=== PATIENT | female | born 1955 | race Caucasian/White ===

== ENCOUNTER 2019-01-25 23:47 | Inpatient (IN) | payer BC ==
[2019-01-26] MEDS ORDERED: GLUCOSE GEL 15 GRAM TUBE BUCCAL (02:30)
[2019-01-26] MEDS ORDERED: GLUCAGON 1 MG INJ IM (02:30)
[2019-01-26] MEDS ORDERED: PROMETHAZINE/DM (CUP) PO (02:30)
[2019-01-26] MEDS ORDERED: DEXTROSE 50% 50 ML SYRINGE IV ×2 (02:30)
[2019-01-26] MEDS ORDERED: SPECIAL NON-STANDARD MEDICATION BOTH EYES (02:30)
[2019-01-26] MEDS ORDERED: MELOXICAM 7.5 MG TAB PO (02:30)
[2019-01-26] MEDS ORDERED: ONDANSETRON 4 MG INJ IV (02:30)
[2019-01-26] MEDS ORDERED: GLUCOSE GEL 15 GRAM TUBE PO ×2 (02:30)
[2019-01-26] MEDS: SOD CHLORIDE 0.9% 1,000 ML IV ×3 (02:50→22:30)
[2019-01-26] MEDS ORDERED: [UNRECOGNIZED DRUG - OTHER] XX (03:30)
[2019-01-26] MEDS ORDERED: PIMECROLIMUS XX (03:30)
[2019-01-26 06:22] LABS: ADD MAN DIFF? NO
[2019-01-26 06:34] LABS: BASOPHIL # 0.1 10^3/ul (0.0-0.1); BASOPHILS % 1.5 % (0.0-2.0); EOSINOPHILS # 0.3 10^3/ul (0.0-0.5); EOSINOPHILS % 5.2 % (0.0-7.0); HEMATOCRIT 38.1 % (37.0-47.0); HEMOGLOBIN 13.1 g/dl (12.0-16.0); LYMPHOCYTES # 2.5 10^3/ul (0.8-2.9); LYMPHOCYTES % 39.7 % (15.0-51.0); MEAN CORPUSCULAR HEMOGLOBIN 30.3 pg (29.0-33.0); MEAN CORPUSCULAR HGB CONC 34.4 g/dl (32.0-37.0); MEAN CORPUSCULAR VOLUME 88.2 fl (82.0-101.0); MONOCYTE # 0.5 10^3/ul (0.3-0.9); MONOCYTES % 7.8 % (0.0-11.0); NEUTROPHIL # 2.8 10^3/ul (1.6-7.5); NEUTROPHILS % 45.5 % (39.0-77.0); PLATELET COUNT 263 10^3/UL (140-415); RED BLOOD COUNT 4.32 10^6/ul (4.20-5.40); RED CELL DISTRIBUTION WIDTH 12.6 % (11.5-14.5)
[2019-01-26 06:34] LABS: WHITE BLOOD COUNT 6.2 10^3/ul (4.8-10.8)
[2019-01-26] MEDS: LORATADINE 10 MG TAB PO (06:53)
[2019-01-26] MEDS: AMLODIPINE 2.5 MG TAB PO (06:54)
[2019-01-26] MEDS: LOSARTAN 50 MG TAB PO (06:54)
[2019-01-26 06:58] LABS: ADD UMIC NO; UR ASCORBIC ACID NEGATIVE (NEGATIVE); UR BILIRUBIN (Dip) NEGATIVE (NEGATIVE); UR BLOOD (Dip) NEGATIVE (NEGATIVE); UR CLARITY CLEAR (CLEAR); UR COLOR YELLOW (YELLOW); UR GLUCOSE (Dip) NEGATIVE (NEGATIVE); UR KETONES (Dip) NEGATIVE (NEGATIVE); UR LEUKOCYTE ESTERASE (Dip) NEGATIVE Leu/ul (NEGATIVE); UR NITRITE (Dip) NEGATIVE (NEGATIVE); UR SPECIFIC GRAVITY (Dip) 1.012 (1.003-1.030); UR TOTAL PROTEIN (Dip) NEGATIVE (NEGATIVE); UR UROBILINOGEN (Dip) NEGATIVE (NEGATIVE)
[2019-01-26 07:10] LABS: ANION GAP 9 (5-13); BLOOD UREA NITROGEN 11 mg/dl (7-20); CALCIUM 8.7 mg/dl (8.4-10.2); CARBON DIOXIDE 25 mmol/L (21-31); CHLORIDE 109 mmol/L (97-110); CREATININE 0.51 mg/dl (0.44-1.00); Estimated GFR > 60 mL/min (>60); GLUCOSE 118 mg/dl (70-220); POTASSIUM 4.1 mmol/L (3.5-5.1); SODIUM 143 mmol/L (135-144)
[2019-01-26] MEDS: INSULIN ASPART [NOVOLOG] 3 ML PEN SC ×3 (07:55→17:27)
[2019-01-26] MEDS: ACCU-CHEK XX ×4 (08:18→21:24)
[2019-01-26] MEDS: ASPIRIN (EC) 81 MG TAB PO (08:19)
[2019-01-26] MEDS: CEFEPIME 1GM/50 ML (PMX) 50 ML IVPB ×2 (08:19→20:37)
[2019-01-26] MEDS: ALPRAZOLAM 0.25 MG TAB PO ×2 (08:21→20:35)
[2019-01-26] MEDS: SPECIAL NON-STANDARD MEDICATION (BULK) TOP ×2 (09:00→20:47)
[2019-01-26] MEDS ORDERED: PIMECROLIMUS TOP (09:00)
[2019-01-26] MEDS ORDERED: LOSARTAN 50 MG TAB PO (09:00)
[2019-01-26] MEDS: ACETAMINOPHEN 325 MG TAB PO ×2 (10:36→20:35)
[2019-01-26] MEDS ORDERED: SUMATRIPTAN 25 MG TAB PO (12:30)
[2019-01-26] MEDS: metFORMIN 500 MG TAB PO (17:31)
[2019-01-26] MEDS: MELATONIN 3 MG TABLET PO (20:36)
[2019-01-26] MEDS: ATORVASTATIN 40 MG TAB PO (20:39)
[2019-01-27] MEDS: SOD CHLORIDE 0.9% 1,000 ML IV ×2 (03:17→08:12)
[2019-01-27 05:33] LABS: ADD MAN DIFF? NO
[2019-01-27 05:37] LABS: WHITE BLOOD COUNT 6.4 10^3/ul (4.8-10.8)
[2019-01-27 05:37] LABS: BASOPHIL # 0.1 10^3/ul (0.0-0.1); BASOPHILS % 0.9 % (0.0-2.0); EOSINOPHILS # 0.4 10^3/ul (0.0-0.5); HEMATOCRIT 38.9 % (37.0-47.0); HEMOGLOBIN 13.4 g/dl (12.0-16.0); LYMPHOCYTES # 2.3 10^3/ul (0.8-2.9); LYMPHOCYTES % 35.9 % (15.0-51.0); MEAN CORPUSCULAR HEMOGLOBIN 30.5 pg (29.0-33.0); MEAN CORPUSCULAR HGB CONC 34.4 g/dl (32.0-37.0); MEAN CORPUSCULAR VOLUME 88.6 fl (82.0-101.0); MONOCYTE # 0.5 10^3/ul (0.3-0.9); MONOCYTES % 8.3 % (0.0-11.0); NEUTROPHIL # 3.1 10^3/ul (1.6-7.5); NEUTROPHILS % 48.6 % (39.0-77.0); PLATELET COUNT 270 10^3/UL (140-415); RED BLOOD COUNT 4.39 10^6/ul (4.20-5.40); RED CELL DISTRIBUTION WIDTH 12.5 % (11.5-14.5)
[2019-01-27] MEDS: PANTOPRAZOLE (EC) 40 MG TAB PO (05:46)
[2019-01-27] MEDS: LORATADINE 10 MG TAB PO (05:46)
[2019-01-27] MEDS: LOSARTAN 50 MG TAB PO (05:47)
[2019-01-27 06:09] LABS: ANION GAP 8 (5-13); BLOOD UREA NITROGEN 12 mg/dl (7-20); CALCIUM 8.9 mg/dl (8.4-10.2); CARBON DIOXIDE 23 mmol/L (21-31); CHLORIDE 113 mmol/L (97-110); CREATININE 0.49 mg/dl (0.44-1.00); Estimated GFR > 60 mL/min (>60); GLUCOSE 137 mg/dl (70-220); POTASSIUM 4.1 mmol/L (3.5-5.1); SODIUM 144 mmol/L (135-144)
[2019-01-27 06:56] LABS: HEMOGLOBIN A1C 6.1 % (0-5.9)
[2019-01-27] MEDS: ACCU-CHEK XX ×2 (07:00→12:33)
[2019-01-27] MEDS: INSULIN ASPART [NOVOLOG] 3 ML PEN SC ×2 (08:00→12:00)
[2019-01-27] MEDS: CEFEPIME 1GM/50 ML (PMX) 50 ML IVPB (08:11)
[2019-01-27] MEDS: SPECIAL NON-STANDARD MEDICATION (BULK) TOP (08:12)
[2019-01-27] MEDS: ASPIRIN (EC) 81 MG TAB PO (08:12)
[2019-01-27] MEDS: metFORMIN 500 MG TAB PO (08:12)
[2019-01-28] MEDS ORDERED: AMLODIPINE 5 MG TAB PO (06:00)
== END 2019-01-27 16:05 | disposition home or self-care (01) | DRG 690 ==
LOC: TEL 23:47 → 2NE 01-26 22:30
DX: N39.0 Urinary tract infection, site not specified (principal); E11.9 Type 2 diabetes mellitus without complications; I10 Essential (primary) hypertension; R22.1 Localized swelling, mass and lump, neck; E78.5 Hyperlipidemia, unspecified; F41.9 Anxiety disorder, unspecified; M79.7 Fibromyalgia; G43.909 Migraine, unspecified, not intractable, without status migrainosus; E66.9 Obesity, unspecified; Z68.30 Body mass index [BMI] 30.0-30.9, adult; Z79.4 Long term (current) use of insulin; Z79.82 Long term (current) use of aspirin; Z90.49 Acquired absence of other specified parts of digestive tract
CPT/HCPCS: 76536; 80048; 81003; 82962; 83036; 85025; 87086